=== PATIENT | female | born 1975 | race African-American/Black ===

== ENCOUNTER 2023-08-19 04:17 | Inpatient (IN) | payer OTHER ==
[2023-08-17 14:06] VITALS: BMI 24.2
[2023-08-19] MEDS ORDERED: ROCURONIUM BROMIDE 50 MG/5 ML SYRINGE ONE ×2 (07:44→09:15)
[2023-08-19] MEDS ORDERED: SUCCINYLCHOLINE CHLORIDE 200 MG/10 ML SYRINGE ONE (07:44)
[2023-08-19] MEDS ORDERED: MAGNESIUM SULF 50% (8.12 MEQ/2 ML-1 GM VIAL) ONE (07:46)
[2023-08-19] MEDS ORDERED: MIDAZOLAM HCL 2 MG/2 ML SINGLE DOSE VIAL ONE (08:10)
[2023-08-19] MEDS ORDERED: FENTANYL CITRATE/PF 50 MCG/ML VIAL ONE (08:11)
[2023-08-19] MEDS: ceFAZolin SODIUM 1 GM VIAL IVPB ONE (08:17)
[2023-08-19] MEDS ORDERED: PROPOFOL 20 ML ONE (08:21)
[2023-08-19] MEDS ORDERED: KETAMINE HCL 200 MG/20 ML VIAL ONE (08:46)
[2023-08-19] MEDS ORDERED: ceFAZolin SODIUM 1 GM VIAL ONE (08:47)
[2023-08-19] MEDS ORDERED: GLYCOPYRROLATE 0.2 MG/1 ML VIAL ONE (08:51)
[2023-08-19] MEDS ORDERED: ACETAMINOPHEN INJECTION 100 ML IVPB ONE (08:55)
[2023-08-19] MEDS ORDERED: HYDROmorphone HCl 2 MG/ML VIAL ONE (09:01)
[2023-08-19] MEDS ORDERED: SUGAMMADEX SODIUM 200 MG/2 ML VIAL ONE (09:01)
[2023-08-19] MEDS ORDERED: ONDANSETRON 4 MG/2 ML VIAL IVPUSH PRN (09:13)
[2023-08-19] MEDS ORDERED: LACTATED RINGERS SOLUTION 1,000 ML IV SCH (09:15)
[2023-08-19] MEDS ORDERED: DEXAMETHASONE SOD PHOSPHATE 4 MG/1 ML VIAL ONE (09:24)
[2023-08-19] MEDS ORDERED: LIDOCAINE HCL/PF 2% SDV 5ML VIAL ONE (09:24)
[2023-08-19] MEDS ORDERED: KETOROLAC TROMETHAMINE 30 MG/1 ML VIAL ONE (09:24)
[2023-08-19] MEDS ORDERED: ONDANSETRON 4 MG/2 ML VIAL ONE ×2 (09:24→19:28)
[2023-08-19] MEDS ORDERED: IBUPROFEN 800 MG/8 ML IJ IVPB PRN (10:18)
[2023-08-19 10:51] VITALS: RESP 18
[2023-08-19] MEDS: CEFAZOLIN 2 GM in DEXTROSE 5%-WATER - 100 ML IVPB ONE (14:04)
[2023-08-19] MEDS: CEFAZOLIN SODIUM 2 GM in DEXTROSE 5%-WATER - 100 ML IVPB SCH (17:45)
[2023-08-19] MEDS: IBUPROFEN 600 MG TABLET (FP) PO PRN (17:55)
[2023-08-19] MEDS: ONDANSETRON 4 MG/2 ML VIAL IVPUSH PRN (19:39)
[2023-08-19] MEDS: ACETAMINOPHEN 1000 MG/100 ML BAG IVPB PRN (19:44)
[2023-08-19] MEDS ORDERED: oxyCODONE HCL 5 MG TABLET PO PRN (22:18)
[2023-08-20] MEDS: SIMETHICONE 80 MG TAB.CHEW (FP) PO PRN (05:53)
[2023-08-20] MEDS: amLODIPine BESYLATE 10 MG TABLET (FP) PO SCH (06:28)
[2023-08-20 07:59] LABS: HEMATOCRIT 39.1 % (32.4-45.2); HEMOGLOBIN 13.7 GM/dL (10.7-15.3); MCH 29.8 pg (25.7-33.7); MEAN CELL VOLUME 85.1 fl (80-96); MEAN PLT VOLUME 8.7 fl (7.5-11.1); PLATELET COUNT 198 10^3/uL (134-434); RDW 13.6 % (11.6-15.6); WHITE BLOOD COUNT 21.9 K/mm3 (4.0-10.0)
[2023-08-20 08:58] LABS: ANISOCYTOSIS 2+; MACROCYTOSIS 0
[2023-08-20] MEDS ORDERED: BISACODYL 10 MG SUPP.RECT RC PRN (10:18)
[2023-08-20] MEDS: ACETAMINOPHEN 325 MG TABLET (FP) PO PRN (12:32)
[2023-08-20] MEDS: ACETAMINOPHEN/CAFFEINE/BUTALBITAL 1 TAB PO PRN (20:01)
[2023-08-21] MEDS: SENNOSIDES/DOCUSATE COMBO (SENNA PLUS) TABLET (UD) PO PRN (05:12)
[2023-08-21 07:11] LABS: BASO % 0.3 % (0-2.0); EOS % 0.1 % (0-4.5); HEMATOCRIT 41.2 % (32.4-45.2); HEMOGLOBIN 14.5 GM/dL (10.7-15.3); MCH 30.2 pg (25.7-33.7); MCHC 35.2 g/dl (32.0-36.0); MEAN CELL VOLUME 85.8 fl (80-96); MEAN PLT VOLUME 8.8 fl (7.5-11.1); MONO % 8.8 % (3.8-10.2); NEUT % 75.8 % (42.8-82.8); PLATELET COUNT 204 10^3/uL (134-434); RBC 4.79 M/mm3 (3.60-5.2); RDW 13.7 % (11.6-15.6)
[2023-08-21 10:51] VITALS: BP 136/92; PULSE 76; TEMP 97.8
[2023-08-21] MEDS: oxyCODONE HCL 5 MG TABLET PO PRN (11:41)
== END 2023-08-21 11:50 | disposition home or self-care (01) | DRG 743 ==
LOC: J2C 04:17 → J3W 13:45
PROVIDERS: ADMIT Obstetrics & Gynecology; ATTEND Obstetrics & Gynecology
PROC: 0UT90ZZ Resection of Uterus, Open Approach (ICD-10-PCS; principal; 2023-08-19 08:00)
DX: D25.1 Intramural leiomyoma of uterus (principal); D25.0 Submucous leiomyoma of uterus; D25.2 Subserosal leiomyoma of uterus; R10.2 Pelvic and perineal pain
CPT/HCPCS: 36415; 85025; 86850; 86900; 86901; 88307-TC; 94010; 94760; J0131